=== PATIENT | male | born 1980 | race Two or more races ===

== ENCOUNTER 2020-04-14 19:13 | Inpatient (IN) | payer MEDICAID ==
[~2020-04-14] VITALS: Ht 185.4 cm; Wt 60.5 kg
[2020-04-14] MEDS ORDERED: SODIUM CHLORIDE 0.9% 2,000 ML IV ONE (20:15)
[2020-04-14 20:41] LABS: Basophils # (auto) 0 10 ^3/uL (0-0.2); Basophils % (auto) 0.2 % (0.0-2.0); Eosinophils # (auto) 0 10 ^3/uL (0-0.8); Eosinophils % (auto) 0.1 % (0.0-7.0); Hematocrit 47.8 % (41.0-53.0); Hemoglobin 15.6 g/dL (13.5-17.5); Lymphocytes # (auto) 0.4 10 ^3/uL (0.4-5.4); Lymphocytes % (auto) 2.8 % (10.0-50.0); Mean Corpuscular Hemoglobin 30.9 pg (28.0-32.0); Mean Corpuscular Hgb Conc. 32.6 g/dL (32.0-36.0); Mean Corpuscular Volume 94.7 fL (80.0-100.0); Monocytes # (auto) 0.7 10 ^3/uL (0-1.3); Monocytes % (auto) 5.3 % (0.0-12.0); Neutrophils % (auto) 91.6 % (37.0-80.0); Platelet Count (auto) 171 10^3/uL (140-450); Red Blood Cells 5.05 10^6/uL (4.5-5.90); Red Cell Distribution Width 16.2 % (11.8-14.3); White Blood Cell 13.1 10^3/uL (4.4-10.8)
[2020-04-14 21:02] LABS: Albumin 4.1 g/dL (3.4-5.0); Calcium 9.6 mg/dL (8.5-10.1); Magnesium 2.7 mg/dL (1.6-2.6); Potassium 4.7 mmol/L (3.5-5.1)
[2020-04-14 21:06] LABS: Total Protein 9.7 g/dL (6.4-8.2)
[2020-04-14 21:07] LABS: Urine Bacteria FEW /hpf (None Seen); Urine Blood 3+ /uL (Negative); Urine WBC 106 /hpf (0 - 3)
[2020-04-14] MEDS ORDERED: InsuLIN REG 1unit/0.01ml Soln (100units/ml) IV ONE (21:15)
[2020-04-14 21:24] LABS: Urine Specific Gravity 1.023 (1.001-1.035)
[2020-04-14] MEDS ORDERED: SODIUM CHLORIDE 0.9% 1,000 ML IV ONE (23:15)
[2020-04-14] MEDS: SODIUM BICARBONATE 8.4 % INJ 50ML VIAL IV ONE ×2 (23:40→23:42)
[2020-04-15] MEDS ORDERED: SODIUM BICARBONATE 8.4 % INJ 50ML VIAL IV ONE ×2 (02:45→05:01)
[2020-04-15] MEDS ORDERED: cefTRIAXone 1GM/50ML D5W 50 ML IV ONE (04:00)
[2020-04-15] MEDS ORDERED: SODIUM BICARBONATE 50ML VIAL 50 ML in SOD CHL 0.45% 1,000 ML IV ONE (04:45)
[2020-04-15] MEDS ORDERED: ONDANSETRON HCL 4 MG/2 ML VIAL IV ONE (05:30)
[2020-04-15] MEDS ORDERED: MORPHINE SULFATE 4 MG/ML SYR/VIAL IV ONE (05:30)
[2020-04-15] MEDS ORDERED: MORPHINE SULF INJ 2 MG/ML SYRINGE 1ML IV PRN (07:45)
[2020-04-15] MEDS ORDERED: DEXTROSE (50%) 50ML SYRG IV PRN (07:45)
[2020-04-15] MEDS ORDERED: NITROGLYCERIN 0.4 MG SL TAB SL PRN (07:45)
[2020-04-15] MEDS ORDERED: ONDANSETRON HCL 4 MG/2 ML VIAL IV PRN (07:45)
[2020-04-15] MEDS ORDERED: HYDROcodone-ACET 5/325MG TAB PO PRN (07:45)
[2020-04-15] MEDS ORDERED: DOCUSATE SOD 100 MG CAP PO PRN (07:45)
[2020-04-15] MEDS ORDERED: ACETAMINOPHEN 325 MG TAB PO PRN (07:45)
[2020-04-15] MEDS: SODIUM CHLORIDE 0.9% 1,000 ML IV SCH (08:18)
[2020-04-15] MEDS ORDERED: cefTRIAXone 1GM/50ML D5W 50 ML IV SCH (10:00)
[2020-04-15 10:02] LABS: Cholesterol 125 mg/dL (< 200)
[2020-04-15 10:05] LABS: HDL Cholesterol 31 mg/dL (40-59); LDL Cholesterol 70 mg/dL (< 100); Triglycerides 151 mg/dL (< 150)
[2020-04-15] MEDS: ASCORBIC ACID 500 MG TAB PO SCH ×2 (10:25→21:21)
[2020-04-15] MEDS: FAMOTIDINE 20 MG TAB PO SCH ×2 (10:25→21:20)
[2020-04-15] MEDS: MULTIPLE VITAMIN TAB PO SCH (10:25)
[2020-04-15] MEDS: ACCU-CHEK COMFORT CURVE STRIP VI SCH ×3 (11:43→21:21)
[2020-04-15] MEDS: InsuLIN REG 1unit/0.01ml Soln (100units/ml) SC SCH ×3 (11:44→21:24)
[2020-04-15 13:20] LABS: Albumin 3.1 g/dL (3.4-5.0); Calcium 8.9 mg/dL (8.5-10.1); Potassium 3.6 mmol/L (3.5-5.1)
[2020-04-15 13:24] LABS: BUN/Creatinine Ratio 15.7; Bilirubin, Total 0.6 mg/dL (0.2-1.0); Total Protein 7.6 g/dL (6.4-8.2)
--- NOTE | 2020-04-15 13:58 | NUR ---
Report Received report from MAKAYLA [place].
--- NOTE | 2020-04-15 14:15 | NUR ---
Patient Arrived Patient arrived to unit. No signs of distress noted at this time. Respirations even and unlabored. Will continue to monitor q1hr and PRN. Safety precautions in place.
[2020-04-15 15:27] VITALS: BP 106/66
--- NOTE | 2020-04-15 15:36 | NUR ---
Called Received call from Dr. Sepulveda, new orders received.
--- NOTE | 2020-04-15 15:46 | NUR ---
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 Per desk monitor, there are currently no tele boxes available for central and rhythm will show on east wing. Patient has tele #[id number]
--- NOTE | 2020-04-15 16:40 | NUR ---
POM POM delivered to pharmacy. Copy given to patient.
[2020-04-15 17:00] VITALS: BP 102/65
[2020-04-15] MEDS ORDERED: INSREG3 SC (17:32)
[2020-04-15] MEDS ORDERED: INSU70IN3 SC (17:32)
[2020-04-15] MEDS ORDERED: FLUC200T50 PO (17:34)
[2020-04-15] MEDS ORDERED: IBUP100S11 PO (17:34)
[2020-04-15] MEDS: INSULIN 70/30 1unit/0.01ml Susp (100units/ml) SC SCH (18:29)
--- NOTE | 2020-04-15 19:05 | NUR ---
Opening Shift Note Assumed care of patient from day shift RN, awake and alert and oriented x4. No S/S of distress/SOB or pain. Instructed on POC and to call for assist PRN, safety measures in place call light with in reach, side rails up x2 and bed in lowest position. will continue to monitor for changes Q1hr and PRN.
[2020-04-15 20:00] VITALS: BP 105/74
[2020-04-15] MEDS: MORPHINE SULFATE 4 MG/ML SYR/VIAL IV PRN (21:04)
--- NOTE | 2020-04-15 21:04 | NUR ---
Patient complained of 10/10 pain to abdomen pain medication administered at this time.
--- NOTE | 2020-04-15 21:34 | NUR ---
patient states no pain at this time.
[2020-04-15 22:00] VITALS: BP 105/74
[2020-04-15] MEDS ORDERED: INSULIN LANTUS (GLARGINE) 1 /0.01ml (100units/ml) SC SCH (22:00)
[2020-04-16] MEDS: MORPHINE SULFATE 4 MG/ML SYR/VIAL IV PRN ×2 (04:20→22:21)
--- NOTE | 2020-04-16 04:20 | NUR ---
patient stated 10/10 pain. pain medication administered.
--- NOTE | 2020-04-16 04:50 | NUR ---
pain reassessed patient states no abdominal pain at this time.
[2020-04-16 06:00] VITALS: BP 109/74
[2020-04-16 06:23] LABS: Basophils # (auto) 0 10 ^3/uL (0-0.2); Basophils % (auto) 0.5 % (0.0-2.0); Eosinophils # (auto) 0.1 10 ^3/uL (0-0.8); Hematocrit 35.1 % (41.0-53.0); Hemoglobin 12.3 g/dL (13.5-17.5); Lymphocytes # (auto) 0.9 10 ^3/uL (0.4-5.4); Lymphocytes % (auto) 17.6 % (10.0-50.0); Mean Corpuscular Hemoglobin 31.1 pg (28.0-32.0); Mean Corpuscular Volume 88.9 fL (80.0-100.0); Monocytes # (auto) 0.6 10 ^3/uL (0-1.3); Monocytes % (auto) 11.4 % (0.0-12.0); Neutrophils # (auto) 3.3 10 ^3/uL (1.6-8.6); Neutrophils % (auto) 67.5 % (37.0-80.0); Nucleated Red Blood Cells % 0.1 %; Platelet Count (auto) 124 10^3/uL (140-450); Red Blood Cells 3.95 10^6/uL (4.5-5.90); Red Cell Distribution Width 15.5 % (11.8-14.3); White Blood Cell 4.9 10^3/uL (4.4-10.8)
[2020-04-16] MEDS: InsuLIN REG 1unit/0.01ml Soln (100units/ml) SC SCH ×4 (06:24→22:43)
[2020-04-16] MEDS: ACCU-CHEK COMFORT CURVE STRIP VI SCH ×4 (06:25→22:21)
[2020-04-16 06:35] LABS: Calcium 8.7 mg/dL (8.5-10.1)
[2020-04-16 06:39] LABS: BUN/Creatinine Ratio 14.8; Bilirubin, Total 0.8 mg/dL (0.2-1.0); Total Protein 7.1 g/dL (6.4-8.2)
[2020-04-16 06:42] LABS: Potassium 2.8 mmol/L (3.5-5.1)
--- NOTE | 2020-04-16 06:46 | NUR ---
hospitalist paged for K+ level of 2.8.
--- NOTE | 2020-04-16 07:03 | NUR ---
Received call from hospitalist ordered K+ 40meq po x1. Read back and verified order hospitalist confirmed.
[2020-04-16] MEDS ORDERED: POTASSIUM CHL 20 Meq TABLET PO ONE (07:15)
[2020-04-16] MEDS: INSULIN 70/30 1unit/0.01ml Susp (100units/ml) SC SCH ×2 (07:51→17:33)
[2020-04-16] MEDS: SODIUM CHLORIDE 0.9% 1,000 ML IV SCH ×2 (07:54→17:34)
[2020-04-16] MEDS: cefTRIAXone 1GM/50ML D5W 50 ML IV SCH (07:54)
[2020-04-16 09:00] VITALS: BP 108/79
[2020-04-16] MEDS: ASCORBIC ACID 500 MG TAB PO SCH ×2 (09:37→22:20)
[2020-04-16] MEDS: FAMOTIDINE 20 MG TAB PO SCH ×2 (09:37→22:20)
[2020-04-16] MEDS: MULTIPLE VITAMIN TAB PO SCH (09:37)
--- NOTE | 2020-04-16 11:28 | NUR ---
Nutrition Assessment/Consult Notes Please refer to link for full assessment notes. Est Energy needs: 3658-8817 kcals (25-30 kcal/kgIBW of 83.6 kg) Est Protein needs: 67-84 gms/day (0.8-1.0 gm/kgIBW of 83.6 kg) Will continue to monitor and reassess prn. Addendum: 04/16/20 at [address] Amended: Links added.
[2020-04-16] MEDS: Glucerna Carbsteady SHAKE Vanilla 8oz PO SCH ×2 (12:00→17:34)
[2020-04-16 12:06] LABS: BUN/Creatinine Ratio 12.2; Calcium 9.3 mg/dL (8.5-10.1)
[2020-04-16 12:14] LABS: Potassium 2.6 mmol/L (3.5-5.1)
--- NOTE | 2020-04-16 12:41 | NUR ---
Dr. Sepulveda at bedside aware of K 2.6, and ok to advance diet, noted and carried it out.
--- NOTE | 2020-04-16 12:45 | NUR ---
Per Dr. Sepulveda to give K 25 MEQ , noted and carried it out.
[2020-04-16 13:00] VITALS: BP 99/64
--- NOTE | 2020-04-16 15:18 | NUR ---
assessment re: ss consult Patient is a 39 year old male who is alert and oriented. Patients cognitive abilities are intact. Prior to admission patient lived home with family and functioned independently. Patient informed me he is able to care for his own ADLs. Per patient he will return home to his prior living arrangements post discharge and family will transport him home. I informed patient of his ss consult for ETOH abuse. Patient informed me he used to drink 12 pack of beer on Thursday and Thursday, but has quit drinking. I offered patient resources for inpatient and outpatient ETOH facilities including AA. Patient refused resources. I informed patient he has a right to speak to a manager social media regarding all care. I informed patient he has a right to participate in any and all discharge planning. Patient does not have a POA and advanced directive. I have offered patient information on POA and advanced directives. I informed the patient the advantages and benefits of having an Advanced Directive. Patient verbalized understanding and agreed to discharge plan. Addendum: 04/16/20 at 1520 by Dana Sosa Amended: Links added.
[2020-04-16 16:49] VITALS: BP 104/63
[2020-04-16] MEDS ORDERED: POTASSIUM EFFERVESENT TAB 25 MEQ GT ONE (19:00)
--- NOTE | 2020-04-16 19:35 | NUR ---
Opening shift note Assumed care of patient from day shift RNMeghana. Patient A&Ox4, respirations even and non-labored with no s/s of distress or complaints at this time. Discussed POC with patient who verbalized understanding. Bed in lowest locked position with 2 side rails up, call light within reach. Advised patient to call for assistance. will continue to monitor Q1hr and PRN.
[2020-04-16 22:00] VITALS: BP 106/78
[2020-04-17] MEDS: MORPHINE SULFATE 4 MG/ML SYR/VIAL IV PRN (04:51)
[2020-04-17 05:00] VITALS: BP 116/78
[2020-04-17] MEDS: ACCU-CHEK COMFORT CURVE STRIP VI SCH ×2 (06:01→11:51)
[2020-04-17] MEDS: InsuLIN REG 1unit/0.01ml Soln (100units/ml) SC SCH ×2 (06:12→11:51)
[2020-04-17 07:10] LABS: BUN/Creatinine Ratio 21.2; Calcium 8.8 mg/dL (8.5-10.1)
--- NOTE | 2020-04-17 07:32 | NUR ---
Closing shift note Patient resting without s/s of distress. Respirations even and non-labored at this time. Endorsed care to day shift RNMeghana.
[2020-04-17 07:33] LABS: Basophils # (auto) 0 10 ^3/uL (0-0.2); Basophils % (auto) 0.6 % (0.0-2.0); Eosinophils # (auto) 0.1 10 ^3/uL (0-0.8); Hematocrit 36.7 % (41.0-53.0); Lymphocytes # (auto) 1.2 10 ^3/uL (0.4-5.4); Lymphocytes % (auto) 32.2 % (10.0-50.0); Mean Corpuscular Hemoglobin 31.1 pg (28.0-32.0); Mean Corpuscular Hgb Conc. 35.3 g/dL (32.0-36.0); Mean Corpuscular Volume 88.2 fL (80.0-100.0); Monocytes # (auto) 0.5 10 ^3/uL (0-1.3); Monocytes % (auto) 14.7 % (0.0-12.0); Neutrophils # (auto) 1.8 10 ^3/uL (1.6-8.6); Neutrophils % (auto) 50.5 % (37.0-80.0); Nucleated Red Blood Cells % 0.1 %; Platelet Count (auto) 125 10^3/uL (140-450); Red Blood Cells 4.16 10^6/uL (4.5-5.90); Red Cell Distribution Width 15.6 % (11.8-14.3); White Blood Cell 3.6 10^3/uL (4.4-10.8)
[2020-04-17] MEDS: INSULIN 70/30 1unit/0.01ml Susp (100units/ml) SC SCH (07:49)
[2020-04-17] MEDS: cefTRIAXone 1GM/50ML D5W 50 ML IV SCH (07:51)
[2020-04-17] MEDS: Glucerna Carbsteady SHAKE Vanilla 8oz PO SCH ×2 (07:51→11:55)
[2020-04-17 08:50] VITALS: BP 99/76
[2020-04-17] MEDS: FAMOTIDINE 20 MG TAB PO SCH (09:09)
[2020-04-17] MEDS: MULTIPLE VITAMIN TAB PO SCH (09:09)
[2020-04-17] MEDS: ASCORBIC ACID 500 MG TAB PO SCH (09:09)
[2020-04-17] MEDS ORDERED: POTASSIUM EFFERVESENT TAB 25 MEQ PO ONE (11:15)
[2020-04-17] MEDS: SODIUM CHLORIDE 0.9% 1,000 ML IV SCH (11:52)
[2020-04-17 12:50] VITALS: BP 93/72
[2020-04-17 13:35] VITALS: BP 93/70
--- NOTE | 2020-04-17 15:18 | NUR ---
Discharge instructions given as ordered. Encourage to follow up with PMD (Follow up DC clinic in 04/24/20 at 10.30 ) as instructed. All questions and concerns addressed. Patient verbalized understanding. Medication reconciliation form completed and copy given to patient. Home medications held in Pharmacy returned to patient. IV removed with catheter intact, pressure dressing applied. Telemetry unit returned to ICU. Patient taken to vehicle via wheelchair with all personal belongings, accompanied by staff and family member. No distress noted at time of departure.
== END 2020-04-17 15:18 | disposition home or self-care (01) | DRG 720 ==
LOC: ER 19:13 → TELE 19:14 → TELE-CENTR 04-15 14:47
PROVIDERS: ADMIT Nurse Practitioner Family; ATTEND Internal Medicine
DX: A41.9 Sepsis, unspecified organism (principal); E11.10 Type 2 diabetes mellitus with ketoacidosis without coma; E44.0 Moderate protein-calorie malnutrition; E86.0 Dehydration; E11.21 Type 2 diabetes mellitus with diabetic nephropathy; E87.1 Hypo-osmolality and hyponatremia; Z68.1 Body mass index [BMI] 19.9 or less, adult; E87.6 Hypokalemia; F32.9 Major depressive disorder, single episode, unspecified; K52.9 Noninfective gastroenteritis and colitis, unspecified; K76.0 Fatty (change of) liver, not elsewhere classified; N10 Acute pyelonephritis; Z79.4 Long term (current) use of insulin; Z91.14 Patient's other noncompliance with medication regimen; B37.49 Other urogenital candidiasis
CPT/HCPCS: 36415; 36600; 74176; 80048; 80053; 80061; 81001; 82805; 82962; 83036; 83605; 83735; 83880; 84443; 85025; 87040; 87045; 87081; 87086; 87088; 87427; 87493; 93005; 96361; 96374; 96375; 96376; G0378; J0696; J1815; J2405

== ENCOUNTER 2020-10-03 11:02 | Emergency (ER) | payer MEDICAID ==
[~2020-10-03] VITALS: Ht 172.7 cm; Wt 63.5 kg
[~2020-10-03 11:02] MED LIST: FLUC200T50 PO; IBUP100S11 PO; INSREG3 SC; INSU70IN3 SC
[2020-10-03 11:34] VITALS: BP 102/73
[2020-10-03 12:00] LABS: Urine Bacteria NONE SEEN /hpf (None Seen); Urine Blood 3+ /uL (Negative); Urine Specific Gravity 1.018 (1.001-1.035); Urine WBC 114 /hpf (0 - 3); Urine WBC Clumps PRESENT /hpf (None Seen)
[2020-10-03] MEDS ORDERED: SODIUM CHLORIDE 0.9% 1,000 ML IV ONE ×2 (12:15)
[2020-10-03] MEDS ORDERED: KETOROLAC TROMETH 30 MG/ML 1ML VIAL IV ONE (12:45)
[2020-10-03] MEDS ORDERED: cefTRIAXone 1GM/50ML D5W 50 ML IV ONE (12:45)
[2020-10-03 13:25] LABS: Basophils # (auto) 0 10 ^3/uL (0-0.2); Basophils % (auto) 0.6 % (0.0-2.0); Eosinophils # (auto) 0.1 10 ^3/uL (0-0.8); Eosinophils % (auto) 1.4 % (0.0-7.0); Hemoglobin 9.1 g/dL (13.5-17.5); Lymphocytes # (auto) 0.9 10 ^3/uL (0.4-5.4); Lymphocytes % (auto) 13.5 % (10.0-50.0); Mean Corpuscular Hemoglobin 32.5 pg (28.0-32.0); Mean Corpuscular Hgb Conc. 33.8 g/dL (32.0-36.0); Monocytes # (auto) 0.5 10 ^3/uL (0-1.3); Monocytes % (auto) 6.9 % (0.0-12.0); Neutrophils # (auto) 5.4 10 ^3/uL (1.6-8.6); Neutrophils % (auto) 77.6 % (37.0-80.0); Platelet Count (auto) 70 10^3/uL (140-450); Red Blood Cells 2.81 10^6/uL (4.5-5.90); Red Cell Distribution Width 13.2 % (11.8-14.3)
[2020-10-03 13:45] LABS: BUN/Creatinine Ratio 14.7; Calcium 8.8 mg/dL (8.5-10.1); Potassium 3.9 mmol/L (3.5-5.1)
[2020-10-03] MEDS ORDERED: InsuLIN REG 1unit/0.01ml Soln (100units/ml) IV ONE (14:00)
== END 2020-10-03 15:50 | disposition home or self-care (01) ==
LOC: ER 11:02
DX: N39.0 Urinary tract infection, site not specified (principal); N20.0 Calculus of kidney; E11.9 Type 2 diabetes mellitus without complications
CPT/HCPCS: 36415; 74176; 80048; 81001; 82962; 85025; 96365; 96375; 99284; J0696; J1815; J1885; 96361